=== PATIENT | female | born 1940 | race Caucasian/White ===

== ENCOUNTER 2016-12-02 11:31 | Emergency (ER) | payer MEDICARE, OTHER ==
--- NOTE | ~2016-12-02 | CT16 ---
[facility] A Service of [facility] RADIOLOGY TEXT RESULTS PATIENT: STEPHEN PEARL LOCATION: [facility] : 42 UNIT #: [id number] AGE: [address]: Edi Lubin MD SEX: F ORDER DR: [id number] [facility]. [place], [place] [address] [id number] E MR#: [id number] Acc #: [id number] NAME: STEPHEN PEARL : 1940 SEX: F STUDY DATE/TIME: 12/02/2016 14:01 UNIT: [facility] ROOM: STUDY DESCRIPTION: CT Angio Chest for PE Attending Physician: Edi Lubin M.D. Ordering Physician: Dominic Morales M.D. Primary Care Physician: Shanta Abernathy A.P.R.N. MEDICAL IMAGING REPORT This report is preliminary unless electronic signature is present EXAM CT angio chest for PE. INDICATION Shortness of air. Nonproductive cough for [address] angiography of the chest with IV contrast. Coronal 3-D MIP reconstructions and standard sagittal reconstructions were obtained. This CT exam was performed with one or more of the following radiation dose reduction techniques: automatic exposure control, adjustment of mA and/or kV according to patient size, and iterative reconstruction. COMPARISON CTA chest dated 03/29/2016. FINDINGS No pulmonary embolus. No thoracic aortic aneurysm or dissection. No pericardial or pleural effusion. Thoracic aorta is normal. There is a small noncalcified pulmonary nodule in the right upper lobe which is unchanged from the prior study. There are some benign calcified granulomas in the lungs. Central airways are patent. Limited images of the upper abdomen were obtained. There are no acute findings. IMPRESSION 1. Negative for pulmonary embolus. 2. No acute findings in the chest. [facility] A Service [facility] RADIOLOGY TEXT RESULTS PATIENT: STEPHEN PEARL LOCATION: [facility] : 42 UNIT #: [id number] AGE: [address]: Edi Lubin MD SEX: F ORDER DR: Dictated by... Otf Ledesma M.D. THIS IS AN ELECTRONICALLY VERIFIED REPORT Otf Ledesma M.D. at 12/02/2016 4:21 PM RPC/aisha TD: 12/02/2016 16:16 JOB #: [id number] MEDICAL IMAGING REPORT COPY
--- NOTE | ~2016-12-02 | CR72 ---
[facility] A Service of [facility] RADIOLOGY TEXT RESULTS PATIENT: STEPHEN PEARL LOCATION: [facility] : 42 UNIT #: [id number] AGE: [address]: Edi Lubin MD SEX: F ORDER DR: [id number] [facility] [address] [place], [place] [address] [id number] E MR#: [id number] Acc #: [id number] NAME: STEPHEN PEARL : 1940 SEX: F STUDY DATE/TIME: 12/02/2016 11:43 UNIT: [facility] ROOM: STUDY DESCRIPTION: CR Chest Single View Portable Attending Physician: Edi Lubin M.D. Ordering Physician: Ed Doc Daniel Morales Primary Care Physician: Shanta Abernathy A.P.R.N. MEDICAL IMAGING REPORT This report is preliminary unless electronic signature is present EXAM Chest portable 12/02/2016 1143 hours CLINICAL HISTORY 76-year-old woman with shortness of air for 3 days. History of hypertension and valvular heart disease. COMPARISON 03/28/2016 FINDINGS Portable upright chest demonstrates heart size within normal limits. There is atherosclerotic mildly tortuous descending thoracic aorta without change. The lungs are well-expanded and clear. There is no effusion or pneumothorax. There is a rounded hyperdensity in the upper abdomen measuring up to 1.9 cm which I believe represents clothing artifact. Correlate clinically. IMPRESSION 1. No acute cardiopulmonary findings. The lungs are clear and there are no effusions. 2. 1.9 cm rounded hyperdensity in the epigastrium is felt likely to represent clothing artifact or foreign body external to the patient but correlation is needed. Dictated by... Amanda Grey M.D. THIS IS AN ELECTRONICALLY VERIFIED REPORT Amanda Grey M.D. at 12/03/2016 8:58 AM DELFINO/jelly [facility] A Service of [facility] RADIOLOGY TEXT RESULTS PATIENT: STEPHEN PEARL [facility] [facility] [id number] : 42 UNIT #: [id number] AGE: [address]: Edi Lubin MD SEX: F ORDER DR: TD: 12/02/2016 13:45 JOB #: [id number] MEDICAL IMAGING REPORT COPY
--- NOTE | ~2016-12-02 | EKG ---
PATIENT: STEPHEN PEARL UNIT #: [id number] Ventricular Rate: 94 BPM Atrial Rate: 94 BPM P-R Interval: 228 ms QRS Duration: 74 ms Q-T Interval: 354 ms QTC Calculation(Bezet): 442 ms P [place]: 41 degrees Calculated R [place]: -55 degrees Calculated T [place]: 39 degrees Diagnosis Line: Sinus rhythm with 1st degree A-V block Diagnosis Line: Left anterior fascicular block Diagnosis Line: Minimal voltage criteria for LVH, may be normal Diagnosis Line: variant Diagnosis Line: Poor R wave progression questionable lead position Diagnosis Line: or body habitus Diagnosis Line: Abnormal ECG Diagnosis Line: When compared with ECG of 31-MAR-2016 09:47, Diagnosis Line: CT interval has increased Diagnosis Line: Confirmed by ROSA HYATT MD ([id number]) on 12/02/2016 Diagnosis Line: 5:47:25 PM INTERPRETING MD: EDMAR MARLOW
[~2016-12-02 11:31] MED LIST: ACETAMINOPHEN325 MG PO; ASPIRIN81 MG PO; AZATHIOPRINE50 M1 PO; BACTROBAN15 GM TOP; CALCIUM CARBON600 M1 PO; CLINDAMYCIN HC300 MG PO; COUMADIN5 MG PO; K-TAB ER20 MEQ PO; LASIX PO; METOPROLOL TAR25 MG PO; MULTI-VITAMIN1 EAC1 PO; ONDANSETRON ODT4 MG PO; RESTASIS32 EA OU; VITAMIN D1000 UNI1 PO
[2016-12-02 11:59] LABS: BASOPHIL# 0.1 X10e3 (0-0.3); BASOPHIL% 0.8 % (0-2.5); EOSINOPHIL# 0.2 X10e3 (0-0.7); EOSINOPHIL% 2.2 % (0.0-7.0); HEMATOCRIT 41.4 % (35.0-45.0); HEMOGLOBIN 13.9 gm/dL (12.0-16.0); LYMPHOCYTE# 0.4 X10e3 (1.0-3.5); LYMPHOCYTE% 4.2 % (17.0-45.0); MEAN CELL VOLUME 92.3 FL (83-96); MEAN CORPUSCULAR HEMOGLOBIN 31.1 PG (28-34); MEAN CORPUSCULAR HGB CONC 33.6 g/dL (30-36); MEAN PLATELET VOLUME 6.9 FL (6.5-11.5); MONOCYTE# 0.6 X10e3 (0-1.0); MONOCYTE% 6.6 % (3.0-12.0); NEUTROPHIL# 7.3 X10e3 (1.5-7.1); NEUTROPHIL% 86.2 % (40-75); PLATELET COUNT 250 X10e3 (140-420); RED BLOOD COUNT 4.48 X10e (3.90-5.30); RED CELL DISTRIBUTION WIDTH 14.8 % (11.0-15.5); WHITE BLOOD COUNT 8.5 X10e3 (4.0-10.5)
[2016-12-02 12:04] LABS: DIFF IND NO
[2016-12-02 12:20] LABS: POC - CKMB 2.4 ng/mL (0.0-7.9); POC - TROPONIN <0.05 ng/mL (<=0.05)
[2016-12-02 12:26] LABS: ALKALINE PHOSPHATASE 209 U/L (32-92); ALT (SGPT) 27 U/L (10-40); AST (SGOT) 41 U/L (10-42); BILIRUBIN, DIRECT 0.1 mg/dL (0.0-0.2); BILIRUBIN,INDIRECT 0.5 mg/dL (0.0-0.9); BILIRUBIN,TOTAL 0.6 mg/dL (0.2-2.0); BLOOD UREA NITROGEN 22 mg/dL (9-23); BUN/CREATININE RATIO 24.44; CALCIUM SERUM 9.3 mg/dL (8.4-10.2); CARBON DIOXIDE 25 mmol/L (22-31); CHLORIDE 101 mmol/L (100-111); CREATININE SERUM 0.9 mg/dL (0.6-1.4); GLOM FILT RATE Estimated ABOVE60 mL/min (>60); GLUCOSE FASTING 99 mg/dL (70-110); POTASSIUM 3.7 mmol/L (3.5-5.1); PROTEIN TOTAL SERUM 7.1 g/dL (6.0-8.3); SODIUM 137 mmol/L (135-145)
[2016-12-02 12:28] LABS: INR 1.5; PARTIAL THROMBOPLASTIN TIME 33.3 SECONDS (23.5-31.3); PROTHROMBIN TIME (PATIENT) 16.4 SECONDS (9.6-11.5)
[2016-12-02 15:40] LABS: POC - CKMB 1.6 ng/mL (0.0-7.9); POC - TROPONIN <0.05 ng/mL (<=0.05)
== END 2016-12-02 16:24 | disposition home or self-care (01) ==
LOC: CED 11:31
PROVIDERS: Emergency Medicine
DX: R06.02 Shortness of breath (principal); R05 Cough; K75.9 Inflammatory liver disease, unspecified; M35.00 Sjogren syndrome, unspecified; D59.1 Other autoimmune hemolytic anemias
CPT/HCPCS: 36415; 71010; 71275; 80048; 80076; 82553; 83880; 84484; 85025; 85610; 85730; 93005; 99284; Q9967

== ENCOUNTER → 2016-12-08 | Outpatient (CLI) | payer MEDICARE, OTHER ==
[2016-12-08 10:01] LABS: HEMATOCRIT 42.7 % (35.0-45.0); HEMOGLOBIN 14.4 gm/dL (12.0-16.0); MEAN CELL VOLUME 93.5 FL (83-96); MEAN CORPUSCULAR HEMOGLOBIN 31.5 PG (28-34); MEAN CORPUSCULAR HGB CONC 33.7 g/dL (30-36); RED BLOOD COUNT 4.57 X10e (3.90-5.30); RED CELL DISTRIBUTION WIDTH 14.9 % (11.0-15.5); WHITE BLOOD COUNT 9.2 X10e3 (4.0-10.5)
[2016-12-08 11:00] LABS: ALKALINE PHOSPHATASE 197 U/L (32-92); ALT (SGPT) 29 U/L (10-40); AST (SGOT) 50 U/L (10-42); BILIRUBIN,TOTAL 0.6 mg/dL (0.2-2.0); BLOOD UREA NITROGEN 19 mg/dL (9-23); BUN/CREATININE RATIO 21.11; CALCIUM SERUM 9.3 mg/dL (8.4-10.2); CARBON DIOXIDE 27 mmol/L (22-31); CHLORIDE 106 mmol/L (100-111); CREATININE SERUM 0.9 mg/dL (0.6-1.4); GLOM FILT RATE Estimated ABOVE60 mL/min (>60); GLUCOSE FASTING 91 mg/dL (70-110); POTASSIUM 3.7 mmol/L (3.5-5.1); PROTEIN TOTAL SERUM 6.6 g/dL (6.0-8.3); SODIUM 138 mmol/L (135-145)
== END | disposition home or self-care (01) ==
LOC: CLAB 09:25
PROVIDERS: Internal Medicine
DX: K75.4 Autoimmune hepatitis (principal)
CPT/HCPCS: 36415; 80053; 85027

== ENCOUNTER 2016-12-24 05:56 | Emergency (ER) | payer MEDICARE, OTHER ==
[2016-12-24 05:26] LABS: BASOPHIL# 0.1 X10e3 (0-0.3); EOSINOPHIL# 0.2 X10e3 (0-0.7); EOSINOPHIL% 3.8 % (0.0-7.0); HEMATOCRIT 39.2 % (35.0-45.0); LYMPHOCYTE# 1.2 X10e3 (1.0-3.5); LYMPHOCYTE% 18.8 % (17.0-45.0); MEAN CELL VOLUME 93.6 FL (83-96); MEAN CORPUSCULAR HGB CONC 33.1 g/dL (30-36); MEAN PLATELET VOLUME 7.1 FL (6.5-11.5); MONOCYTE# 0.6 X10e3 (0-1.0); MONOCYTE% 9.6 % (3.0-12.0); NEUTROPHIL# 4.3 X10e3 (1.5-7.1); NEUTROPHIL% 66.8 % (40-75); PLATELET COUNT 244 X10e3 (140-420); RED BLOOD COUNT 4.18 X10e (3.90-5.30); RED CELL DISTRIBUTION WIDTH 14.9 % (11.0-15.5); WHITE BLOOD COUNT 6.5 X10e3 (4.0-10.5)
[2016-12-24 05:26] LABS: POC - CKMB 1.7 ng/mL (0.0-7.9); POC - TROPONIN <0.05 ng/mL (<=0.05)
[2016-12-24 05:31] LABS: DIFF IND NO
[2016-12-24 06:09] LABS: GLOM FILT RATE Estimated 55.5 mL/min (>60); POTASSIUM 3.6 mmol/L (3.5-5.1)
[2016-12-24 06:29] LABS: INR 1.9; PROTHROMBIN TIME (PATIENT) 20.2 SECONDS (9.6-11.5)
== END 2016-12-24 06:40 | disposition home or self-care (01) ==
LOC: CED 05:56
PROVIDERS: Emergency Medicine
DX: I10 Essential (primary) hypertension (principal); K75.9 Inflammatory liver disease, unspecified
CPT/HCPCS: 36415; 80048; 82553; 84484; 85025; 85610; 99283

== ENCOUNTER → 2017-01-05 | Outpatient (CLI) | payer MEDICARE, OTHER ==
--- NOTE | ~2017-01-05 | PFT ---
[id number] [facility] [address] [place], [place] [address] [id number] O MR#: [id number] NAME: STEPHEN PEARL ROOM: SEX: Cecilia STUDY DATE/TIME: 01/10/2017 : 1940 AGE: 76 STUDY DESCRIPTION: Attending Physician: Shanta Abernathy A.P.R.N. Referring Physician: Shanta Abernathy A.P.R.N. Primary Care Physician: Shanta Abernathy A.P.R.N. PULMONARY DIAGNOSTIC REPORT EXAM Pulmonary function test. FINDINGS Spirometry is normal. There is a significant, 15%, change after bronchodilators, yielding an FEV1 of 1.87 liters, 96% of predicted. Flow volume loop is fairly unremarkable. Lung volumes are suggestive of a restrictive defect with a total lung capacity of 75%. Although no technical difficulties are reported, some of the lung volume findings are confusing and interpreted with caution. Diffusion capacity is moderately reduced. Dictated by... Feliciano Mclaughlin M.D. Dahlia TD: 01/10/2017 11:47 JOB #: [id number] PULMONARY DIAGNOSTIC REPORT Page 1 of 1
== END | disposition home or self-care (01) ==
LOC: CRC 08:44
DX: R06.02 Shortness of breath (principal)
CPT/HCPCS: 94060; 94726; 94729

== ENCOUNTER → 2017-01-26 | Outpatient (CLI) | payer MEDICARE, OTHER ==
[2017-01-26 08:24] LABS: HEMATOCRIT 41.4 % (35.0-45.0); HEMOGLOBIN 13.4 gm/dL (12.0-16.0); MEAN CELL VOLUME 96.3 FL (83-96); MEAN CORPUSCULAR HEMOGLOBIN 31.2 PG (28-34); MEAN CORPUSCULAR HGB CONC 32.4 g/dL (30-36); MEAN PLATELET VOLUME 7.5 FL (6.5-11.5); RED BLOOD COUNT 4.3 X10e (3.90-5.30); RED CELL DISTRIBUTION WIDTH 15.9 % (11.0-15.5); WHITE BLOOD COUNT 8.2 X10e3 (4.0-10.5)
[2017-01-26 08:51] LABS: ALBUMIN SERUM 4.1 g/dL (3.5-5.0); BILIRUBIN,TOTAL 0.5 mg/dL (0.2-2.0); CALCIUM SERUM 9.2 mg/dL (8.4-10.2); GLOM FILT RATE Estimated 55.5 mL/min (>60); POTASSIUM 3.6 mmol/L (3.5-5.1); PROTEIN TOTAL SERUM 7.1 g/dL (6.0-8.3)
== END | disposition home or self-care (01) ==
LOC: CLAB 08:05
PROVIDERS: Nurse Practitioner Family
DX: K75.4 Autoimmune hepatitis (principal)
CPT/HCPCS: 36415; 80053; 85027

== ENCOUNTER → 2017-05-04 | Outpatient (CLI) | payer MEDICARE, OTHER ==
[2017-05-04 09:16] LABS: HEMATOCRIT 40.1 % (35.0-45.0); HEMOGLOBIN 13.6 gm/dL (12.0-16.0); MEAN CELL VOLUME 95.4 FL (83-96); MEAN CORPUSCULAR HEMOGLOBIN 32.4 PG (28-34); MEAN PLATELET VOLUME 7.6 FL (6.5-11.5); RED BLOOD COUNT 4.2 X10e (3.90-5.30); WHITE BLOOD COUNT 5.7 X10e3 (4.0-10.5)
[2017-05-04 09:46] LABS: ALBUMIN SERUM 4.2 g/dL (3.5-5.0); BILIRUBIN,TOTAL 0.9 mg/dL (0.2-2.0); BUN/CREATININE RATIO 28.57; CALCIUM SERUM 9.4 mg/dL (8.4-10.2); CREATININE SERUM 0.7 mg/dL (0.6-1.4); GLOM FILT RATE Estimated 85.4 mL/min (>60); POTASSIUM 4.2 mmol/L (3.5-5.1)
== END | disposition home or self-care (01) ==
LOC: CLAB 08:28
PROVIDERS: Internal Medicine
DX: K75.4 Autoimmune hepatitis (principal)
CPT/HCPCS: 36415; 80053; 85027

== ENCOUNTER → 2017-05-25 | Outpatient (CLI) | payer MEDICARE, OTHER ==
--- NOTE | ~2017-05-25 | MY29 ---
"[facility] A Service of [facility] RADIOLOGY TEXT RESULTS PATIENT: STEPHEN PEARL LOCATION: [facility] : 42 UNIT #: [id number] AGE: [address]: Shanta Abernathy APRN SEX: F ORDER DR: [id number] [facility] [address] [place], [place] [address] [id number] O MR#: [id number] Acc #: [id number] NAME: STEPHEN PEARL : 1940 SEX: F STUDY DATE/TIME: 05/25/2017 9:12 UNIT: [facility] ROOM: STUDY DESCRIPTION: MY [facility] SCREENING W/ CAD BILAT Attending Physician: Shanta Abernathy A.P.R.N. Ordering Physician: Shanta Abernathy A.P.R.N. Primary Care Physician: Shanta Abernathy A.P.R.N. MEDICAL IMAGING REPORT This report is preliminary unless electronic signature is present EXAM Bilateral digital screen mammogram with CAD 05/25/2017 INDICATIONS 76-year-old female for routine screening. No reported problems and no personal history of breast cancer. Family history positive in a sister and a daughter. History of benign lumpectomy procedures in 1987 through 1991. TECHNIQUE CC and MLO views of the breast were obtained and reviewed with an FDA approved CAD device.| COMPARISON STUDIES:Y 04/21/2016, 03/26/2015, 03/20/2014 FINDINGS Scar markers present along with mole markers. Breast parenchyma is heterogeneously dense. This degrades sensitivity of screening mammography. The pattern is unchanged. There is no new dominant nodule mass or suspicious clustered microcalcifications. Benign calcifications are present. IMPRESSION Benign screening mammogram 1 year followup recommended. Patients over the age of 40 are entered into a reminder system with target due date for the next mammogram. A result letter will also be sent to the patient. BIRADS: 2 - benign findings Dictated by... [facility] A Service of [facility] RADIOLOGY TEXT RESULTS PATIENT: STEPHEN PEARL LOCATION: [facility] : 42 UNIT #: [id number] AGE: [address]: Shanta Abernathy APRN SEX: F ORDER DR: Nirav Thomason M.D. THIS IS AN ELECTRONICALLY VERIFIED REPORT Nirav Thomason M.D. at 05/26/2017 5:25 PM Jose TD: 05/25/2017 13:32 JOB #: [id number] MEDICAL IMAGING REPORT Page 1 of 1 COPY"
== END | disposition home or self-care (01) ==
LOC: CWCC 08:46
DX: Z12.31 Encounter for screening mammogram for malignant neoplasm of breast (principal); Z80.3 Family history of malignant neoplasm of breast
CPT/HCPCS: G0202